=== PATIENT | female | born 1940 | race Caucasian/White ===

== ENCOUNTER 2020-04-11 22:56 | Emergency (ER) | payer MEDICARE ==
[~2020-04-11] VITALS: Ht 157.5 cm; Wt 77.7 kg
[2020-04-11 22:56] VITALS: BP 160/88
[2020-04-11] MEDS ORDERED: VALS40TA9 PO (23:04)
[2020-04-11] MEDS ORDERED: LEVO75TA4 PO (23:04)
[2020-04-11] MEDS ORDERED: ASPI81CH17 PO (23:04)
[2020-04-12] MEDS ORDERED: methylPREDNISolone INJ 125 MG/2 ML VIAL (J2930) IM ONE
[2020-04-12] MEDS ORDERED: KETOROLAC 60MG 2ML VIAL IM ONE
[2020-04-12] MEDS ORDERED: PRED20TA PO (00:35)
--- NOTE | 2020-04-12 09:58 | REP ---
PELVIS, SINGLE VIEW: Single view of the pelvis is performed. No acute fracture or dislocation is seen. There are mild degenerative changes of the lower lumbar spine. There is mild joint space narrowing and subchondral sclerosis at the sacroiliac joints and hip joints bilaterally. IMPRESSION: Mild degenerative changes. No fracture or dislocation. Electronically Signed by Connor Yan MD 04/12/2020 10:27 A
== END 2020-04-12 00:43 | disposition home or self-care (01) ==
LOC: M ED 22:56
DX: G57.13 Meralgia paresthetica, bilateral lower limbs (principal); M25.551 Pain in right hip; M25.552 Pain in left hip
CPT/HCPCS: 72170; 96372; 99282; J1885; J2930